=== PATIENT | female | born 1965 | race Caucasian/White ===

== ENCOUNTER → 2017-05-09 | Outpatient (REF) | payer OTHER ==
[~2017-05-09] MED LIST: MOTR200T44 PO; MULTCAP PO; VITA100066 PO
[2017-05-09 15:10] LABS: PERCENT SATURATION 39.6 % (13.2-37.4)
== END ==
LOC: M LAB REF 13:38
PROVIDERS: ATTEND Internal Medicine Medical Oncology
DX: D50.9 Iron deficiency anemia, unspecified (principal)

== ENCOUNTER → 2017-12-01 | Outpatient (REF) | payer OTHER ==
[2017-12-01 21:53] LABS: FERRITIN 46 NG/ML (8-252); IRON (FE) 136 UG/DL (50-170); PERCENT SATURATION 45.5 % (13.2-45.0); TOTAL IRON BINDING CAPACITY 299 UG/DL (250-450)
== END ==
LOC: M LAB REF 18:01
DX: D50.9 Iron deficiency anemia, unspecified (principal)

== ENCOUNTER → 2018-09-14 | Outpatient (CLI) | payer OTHER | LOC: M PAIN 10:15 | DX: M79.18 Myalgia, other site (principal); M54.5 Low back pain; G89.29 Other chronic pain; I20.9 Angina pectoris, unspecified; R56.9 Unspecified convulsions; F32.9 Major depressive disorder, single episode, unspecified; F43.10 Post-traumatic stress disorder, unspecified; Z79.84 Long term (current) use of oral hypoglycemic drugs; Z79.899 Other long term (current) drug therapy; Z87.820 Personal history of traumatic brain injury; Z98.84 Bariatric surgery status | CPT/HCPCS: G0463 ==

== ENCOUNTER → 2018-10-01 | Outpatient (CLI) | payer BC, OTHER ==
[~2018-10-01] MED LIST changes: +BUPIVACAINE HCL 0.25% 10 ML VIAL As Ordered; +BUPIVACAINE HCL 0.25% 30 ML VIAL As Ordered; -MOTR200T44 PO; -MULTCAP PO; +TRIAMCINOLONE ACETONIDE SUSP 40 MG/ML VIAL (J3301) As Ordered; -VITA100066 PO; +diazePAM 5 MG TAB As Ordered; +oxyCODONE 5MG TAB As Ordered
== END ==
LOC: M PAIN 08:30
DX: M79.18 Myalgia, other site (principal); M54.2 Cervicalgia; M54.5 Low back pain; R56.9 Unspecified convulsions; F32.9 Major depressive disorder, single episode, unspecified; F43.10 Post-traumatic stress disorder, unspecified; E66.01 Morbid (severe) obesity due to excess calories; Z68.35 Body mass index [BMI] 35.0-35.9, adult; Z87.820 Personal history of traumatic brain injury; Z98.84 Bariatric surgery status
CPT/HCPCS: J3301

== ENCOUNTER → 2018-12-21 | Outpatient (CLI) | payer OTHER ==
[~2018-12-21] MED LIST changes: +ARIP5TA PO; -BUPIVACAINE HCL 0.25% 10 ML VIAL As Ordered; -BUPIVACAINE HCL 0.25% 30 ML VIAL As Ordered; +BUPR1TAB53 PO; +CITA-230 PO; +DEXT10CA5 PO; +FERR325T3 PO; +FLUD0.1T PO; +HYDR-643 PO; +LEVO1CAP7 PO; +MAGN400C PO; +METF500T4 PO; +MOTR200T44 PO; +MULTCAP PO; +OMEP40CA2 PO; +PROP20TA72 PO; +QUET1TAB7 PO; +TIZA2TA PO; +TRAZ-160 PO; -TRIAMCINOLONE ACETONIDE SUSP 40 MG/ML VIAL (J3301) As Ordered; +VITA100066 PO; +VITA1CAP7 PO; +VITA500T3 PO; +ZONI100C2 PO; -diazePAM 5 MG TAB As Ordered; -oxyCODONE 5MG TAB As Ordered
--- NOTE | 2019-01-02 00:41 | ECWPNPC ---
PATIENT NAME: JAYCOB STOREY : 1965 GENDER: FEMALE VISIT DATE: 12/21/2018 DISCHARGE DATE: 12/21/18 1616 VISIT LOCKED DATE TIME: PHYSICIAN: ARLET ARMAS RESOURCE: ARLET ARMAS REASON FOR APPOINTMENT 1. SW PT, POST TPI HISTORY OF PRESENT ILLNESS HISTORY OF PRESENT ILLNESS: HERE FOR F/U OF CHRONIC NECK AND LOW BACK PAIN.HAD TPI NECK AND LOW BACK ON 10/11/18.REPORTING NO IMPROVEMENT AND SOME AGGREVATION IN PAIN AFTER PROCEDURE.CONTINUES TO HAVE INTERMITTENT NECK AND LOW BACK PAIN.PAIN IS AGGREVATED BY HOUSEWORK.PAIN IS RELIEVED WITH REST.PAIN IS WORSE ACROSS LOW BACK WITH RADIATION INTO LEFT HIP. PAIN THE PATIENT DESCRIBES THE PAIN... FALL RISK SCREENING: SCREENING :NO FALLS IN THE PAST YEAR CURRENT MEDICATIONS TAKING BUPROPION HCL ER (SR) 150 MG TABLET EXTENDED RELEASE 12 HOUR TAKE ONE TABLET BY MOUTH TWO TIMES A DAY ORAL TAKING [id number] 15-90.314 MG CAPSULE TAKE ONE CAPSULE BY MOUTH EVERY DAY ORAL TAKING AMPHETAMINE-DEXTROAMPHETAMINE 20 MG TABLET (SCHEDULE II DRUG) TAKE ONE TABLET BY MOUTH TWO TIMES A DAY MAXIMUM DAILY DOSE TWO TABLETS ORALLY BID TAKING MAGNESIUM OXIDE 400 (241.3 MG) MG TABLET TAKE ONE TABLET BY MOUTH DAILY ORAL TAKING ZONISAMIDE 100 MG CAPSULE TAKE ONE CAPSULE BY MOUTH TWICE A DAY ORAL TAKING CITALOPRAM HYDROBROMIDE 40 MG TABLET TAKE A 1 2 TABLET BY MOUTH ONCE DAILY ORAL TAKING PROPRANOLOL HCL 20 MG TABLET TAKE ONE TABLET BY MOUTH TWICE A DAY ORAL TAKING TIZANIDINE HCL 4 MG TABLET TAKE ONE TABLET BY MOUTH THREE TIMES A DAY ORAL TAKING TRAZODONE HCL 50 MG TABLET TAKE ONE TABLET BY MOUTH ONCE AT BEDTIME NEEDED ORAL TAKING ARIPIPRAZOLE 5 MG TABLET TAKE ONE TABLET BY MOUTH ONCE A DAY ORAL TAKING FLUDROCORTISONE ACETATE 0.1 MG TABLET TAKE ONE TABLET BY MOUTH DAILY ORAL TAKING MULTIVITAMINS OTC TABLET 1 TAB(S) ORALLY ONCE A DAY TAKING VITAMIN D 38428 U TABLET 1 TABLET ORALLY ONCE A DAY TAKING HYDROXYZINE HCL 25 MG TABLET TAKE ONE TABLET BY MOUTH EVERY 8 HOURS NEEDED ORAL , NOTES: NONE RECENTLY TAKING SUMATRIPTAN SUCCINATE 100 MG TABLET 1 TABLET NEEDED ORALLY NEEDED FOR HEADACHE, NOTES: NONE RECENTLY NOT-TAKING QUETIAPINE FUMARATE 25 MG TABLET TAKE ONE TABLET BY MOUTH ONCE AT BEDTIME ORAL NOT-TAKING METFORMIN HCL ER 500 MG TABLET EXTENDED RELEASE 24 HOUR TAKE ONE TABLET BY MOUTH TWO TIMES A DAY ORAL NOT-TAKING OMEPRAZOLE 40 MG CAPSULE DELAYED RELEASE TAKE ONE CAPSULE BY MOUTH EVERY DAY ORAL MEDICATION LIST REVIEWED AND RECONCILED WITH THE PATIENT PAST MEDICAL HISTORY SEIZURE DISORDER, RELATED TO OCP'S . HX MORBID OBESITY WITH HIGH BLOOD PRESSURE AND HIGH GLUCOSE LEVELS, WITH GASTRIC BYPASS MARCH 2010 IRON DEFICIENCY ANEMIA DEPRESSION, PTSD AND TBI SECONDARY TO HEAD INJURY - PSYCH TX TWICE PER MONTH ALLERGIES N.K.D.A. SURGICAL HISTORY C SECTION 1989 TUBAL LIGATION 1989 CHOLECYSTECTOMY 1991 GASTRIC BYPASS 03/2010 LEFT SHOULDER SURGERY 2015 & 2017 KNEE 2002 PARTIAL HYSTERECTOMY 2013 FAMILY HISTORY FATHER: 76 YRS, CA LUNG, TOBACCO USER, HX [place] MOTHER: 61 YRS, COPD, TOBACCO USER PATERNAL GRAND MOTHER: 46 YRS, BREAST CANCER PATERNAL UNCLE: 40'S YRS, 2 WITH COLON CANCER, 1 WITH LUNG CA 4 BROTHER(S) , 2 SISTER(S) . 2 SON(S) - HEALTHY. 2 SISTERS INFANTS - PNEUMONIA, SIDS. SOCIAL HISTORY GENERAL: TOBACCO USE ARE YOU A:NEVER SMOKER ALCOHOL SCREENING DID YOU HAVE A DRINK CONTAINING ALCOHOL IN THE PAST YEAR?NO POINTS0 INTERPRETATIONNEGATIVE RECREATIONAL DRUG USE DENIES. CAFFEINE CAFFEINE USE?YES HOW OFTEN AND HOW MUCH? 2 CUPS COFFEE PER DAY YAZDANISM [id number] ZOROASTRIAN NO TEMPLE BELIEFS THAT WOULD IMPACT HEALTH CARE. LEARNING BARRIERS / SPECIAL NEEDS BARRIERS TO LEARNING?NO VISION IMPAIRED?YES :CORRECTIVE LENSES LEARNING PREFERENCES?YES :HANDOUTS, OTHER (PLEASE COMMENT) WRITTEN LEARNING CAPABILITIES PRESENT?YES DOMESTIC VIOLENCE DENIES. OCCUPATION: [employer], [employer] AND [employer]. DIET: HEALTHY. SMALL PORTIONS. . EXERCISE: WALKS DAILY. OTHERS AT HOME: SPOUSE, ONE SON. PAIN CLINIC PFS, CLERGY, PUBLIC HEALTH REFERRALS PFS REFERRAL NEEDED?NO CLERGY REFERRAL NEEDED?NO PUBLIC HEALTH REFERRAL NEEDED?NO WAS THE PROVIDER NOTIFIED OF ANY PERTINENT INFO?NO HAS THE PATIENT BEEN EDUCATED REGARDING HIS/HER PLAN OF CARE?YES HAS THE PATIENT BEEN EDUCATED REGARDING PAIN, THE RISK FOR PAIN, THE IMPORTANCE OF EFFECTIVE PAIN MANAGEMENT, AND THE PAIN ASSESSMENT PROCESS?YES ADVANCE DIRECTIVE ADVANCE DIRECTIVE DISCUSSED WITH PATIENT:YES HAS INFO ON IT HOSPITALIZATION/MAJOR DIAGNOSTIC PROCEDURE NO HOSPITALIZATION HISTORY. REVIEW OF SYSTEMS REVIEWED BY: PROVIDER: ARLET CLINTON . CONSTITUTIONAL: ANY CHANGE IN YOUR MEDICAL CONDITION? NO . CHILLS NO . FEVER NO . INFECTION: DO YOU HAVE NEW INFECTIONS? NO . DO YOU HAVE HISTORY OF MRSA? NO . MUSCULOSKELETAL: ANY NEW PATTERNS OF PAIN OR NUMBNESS? NO . GASTROENTEROLOGY: ANY NEW CHANGE IN BOWEL CONTROL? NO . GENITOURINARY: ANY NEW CHANGE IN BLADDER CONTROL? NO . IS THERE A CHANCE YOU COULD BE ? NO . HEMATOLOGY/LYMPH: DO YOU TAKE ANY BLOOD THINNERS? (FOR EXAMPLE- COUMADIN, PLAVIX, AGGRENOX, PLATEL, PRADAXA, OR XARELTO) NO . WHEN WAS YOUR LAST DOSE? DATE: TIME: . NEUROLOGY: HAVE YOU FALLEN IN THE PAST 12 MONTHS? NO . ANY NEW EXTREMITY NUMBNESS OR WEAKNESS? NO . CARDIOLOGY: DO YOU HAVE A PACEMAKER OR DEFIBRILLATOR? NO . RESPIRATORY: HAVE YOU BEEN SICK IN THE PAST WEEK? NO . FEVER NO . FLU LIKE SYMPTOMS? NO . COUGH NO . INTEGUMENTARY: DO YOU HAVE ANY RASHES OR OPEN SORES? NO . ALLERGIC/IMMUNO: ARE YOU ALLERGIC TO IV DYE? NO . ANY NEW ALLERGIES? NO . PSYCHIATRIC: DO YOU HAVE THOUGHTS OF HURTING YOURSELF OR SOMEONE ELSE? NO . ARE YOU ABUSED, NEGLECTED, OR IN AN UNSAFE ENVIRONMENT? NO . ENDOCRINOLOGY: ARE YOU DIABETIC? NO . OTHER: DO YOU NEED ANY PRESCRIPTIONS? NO . IF YES, PLEASE LIST: ____ . ANY NEW PROBLEMS WITH YOUR MEDICATIONS? NO . WHEN DID YOU LAST EAT? ____ . WHEN DID YOU LAST DRINK? ____ . WHAT DID YOU LAST DRINK? ____ . NAME OF PERSON DRIVING YOU HOME? ____ . DO YOU HAVE ANY OTHER QUESTIONS OR CONCERNS NO . VITAL SIGNS WT 216.8 LBS, HT 64 IN, BMI 37.21 INDEX, BP 130/72 MM HG, HR 78 /MIN, RR 16 /MIN, TEMP 97.8 F, OXYGEN SAT % 98%, NA INITIALS SC 14:58. EXAMINATION GENERAL EXAMINATION: GENERAL APPEARANCE:ALERT,NO DISTRESS . PSYCHAFFECT NORMAL . LUNGS:LUNG SOUNDS ARE CLEAR . HEART:HEART RATE REGULAR . MUSCULOSKELETAL:MST 5/5 BILAT. LOWER EXTREMITIES . LUMBAR SACRAL SPINE TENDERNESS LEFT SIJ . DIAGNOSTIC TESTS REVIEWEDCT L/S [id number] . ASSESSMENTS SACROILIITIS - M46.1 (PRIMARY) TREATMENT SACROILIITIS NOTES: LEFT SIJ. PROCEDURE CODES FA211 ESTABILISHED PATIENT [facility] CHARGE DISPOSITION & COMMUNICATION FOLLOW UP POST (REASON: LEFT SIJ) ELECTRONICALLY SIGNED BY OZ ORO ON 01/01/2019 AT 03:55 PM EST DISCLAIMER : THIS IS A VISIT SUMMARY EXTRACTED FROM THE [employer] CHART. IT IS NOT A COPY OF THE [employer] PROGRESS NOTE. AINSLEY
== END ==
LOC: M PAIN 14:45
PROVIDERS: ATTEND Nurse Practitioner Family
DX: M46.1 Sacroiliitis, not elsewhere classified (principal); G89.29 Other chronic pain; R56.9 Unspecified convulsions; F32.9 Major depressive disorder, single episode, unspecified; F43.10 Post-traumatic stress disorder, unspecified; E66.9 Obesity, unspecified; Z68.37 Body mass index [BMI] 37.0-37.9, adult; Z79.899 Other long term (current) drug therapy; Z98.84 Bariatric surgery status; Z87.820 Personal history of traumatic brain injury

== ENCOUNTER → 2018-12-30 | Outpatient (CLI) | payer BC, OTHER ==
[~2018-12-30] MED LIST changes: +BUPIVACAINE HCL 0.25% 30 ML VIAL As Ordered ONE; +ISOVUE-M 300 61% 15ML VIAL (Q9967) As Ordered ONE; +LIDOCAINE 1% SDV INJ 30 ML VIAL As Ordered ONE; +TRIAMCINOLONE ACETONIDE SUSP 40 MG/ML VIAL (J3301) As Ordered ONE; +diazePAM 5 MG TAB As Ordered ONE; +oxyCODONE 5MG TAB As Ordered ONE
--- NOTE | 2018-12-30 15:32 | REP ---
Left SI joint: Two views. History: Left SI joint injection for pain. 10 seconds of fluoroscopy time is reported. Findings: A sequence of two last image hold fluoroscopically obtained spot radiographs of the left SI joint document needle position and contrast injection associated with SI joint injection procedure. Electronically Signed by Sal Plunkett MD 12/30/2018 07:19 P
--- NOTE | 2019-01-09 23:28 | ECWPNPC ---
PATIENT NAME: JAYCOB STOREY : 1965 GENDER: FEMALE VISIT DATE: 12/30/2018 DISCHARGE DATE: 12/30/18 1322 VISIT LOCKED DATE TIME: PHYSICIAN: OLIVE CORNELL MD RESOURCE: OLIVE CORNELL MD REASON FOR APPOINTMENT 1. LEFT SIJ HISTORY OF PRESENT ILLNESS HISTORY OF PRESENT ILLNESS: PAIN THE PATIENT DESCRIBES THE PAIN... FALL RISK SCREENING: SCREENING :NO FALLS IN THE PAST YEAR CURRENT MEDICATIONS TAKING BUPROPION HCL ER (SR) 150 MG TABLET EXTENDED RELEASE 12 HOUR TAKE ONE TABLET BY MOUTH TWO TIMES A DAY ORAL , NOTES: 0700 TAKING [id number] 15-90.314 MG CAPSULE TAKE ONE CAPSULE BY MOUTH EVERY DAY ORAL , NOTES: 07 TAKING AMPHETAMINE-DEXTROAMPHETAMINE 20 MG TABLET (SCHEDULE II DRUG) TAKE ONE TABLET BY MOUTH TWO TIMES A DAY MAXIMUM DAILY DOSE TWO TABLETS ORALLY BID, NOTES: 07 TAKING MAGNESIUM OXIDE 400 (241.3 MG) MG TABLET TAKE ONE TABLET BY MOUTH DAILY ORAL , NOTES: 12/29/182199 TAKING ZONISAMIDE 100 MG CAPSULE TAKE ONE CAPSULE BY MOUTH TWICE A DAY ORAL , NOTES: 07 TAKING CITALOPRAM HYDROBROMIDE 40 MG TABLET TAKE A 1 2 TABLET BY MOUTH ONCE DAILY ORAL , NOTES: 07 TAKING PROPRANOLOL HCL 20 MG TABLET TAKE ONE TABLET BY MOUTH TWICE A DAY ORAL , NOTES: 12/29/182199 TAKING TIZANIDINE HCL 4 MG TABLET TAKE ONE TABLET BY MOUTH THREE TIMES A DAY ORAL , NOTES: 12/29/182199 TAKING TRAZODONE HCL 50 MG TABLET TAKE ONE TABLET BY MOUTH ONCE AT BEDTIME NEEDED ORAL , NOTES: 12/29/182199 TAKING ARIPIPRAZOLE 5 MG TABLET TAKE ONE TABLET BY MOUTH ONCE A DAY ORAL , NOTES: 07 TAKING FLUDROCORTISONE ACETATE 0.1 MG TABLET TAKE ONE TABLET BY MOUTH DAILY ORAL , NOTES: 0700 TAKING MULTIVITAMINS OTC TABLET 1 TAB(S) ORALLY ONCE A DAY, NOTES: 0700 TAKING VITAMIN D 99239 U TABLET 1 TABLET ORALLY ONCE A DAY, NOTES: 07 TAKING HYDROXYZINE HCL 25 MG TABLET TAKE ONE TABLET BY MOUTH EVERY 8 HOURS NEEDED ORAL , NOTES: NONE RECENTLY TAKING SUMATRIPTAN SUCCINATE 100 MG TABLET 1 TABLET NEEDED ORALLY NEEDED FOR HEADACHE, NOTES: NONE RECENTLY NOT-TAKING QUETIAPINE FUMARATE 25 MG TABLET TAKE ONE TABLET BY MOUTH ONCE AT BEDTIME ORAL NOT-TAKING METFORMIN HCL ER 500 MG TABLET EXTENDED RELEASE 24 HOUR TAKE ONE TABLET BY MOUTH TWO TIMES A DAY ORAL NOT-TAKING OMEPRAZOLE 40 MG CAPSULE DELAYED RELEASE TAKE ONE CAPSULE BY MOUTH EVERY DAY ORAL MEDICATION LIST REVIEWED AND RECONCILED WITH THE PATIENT PAST MEDICAL HISTORY SEIZURE DISORDER, RELATED TO OCP'S . HX MORBID OBESITY WITH HIGH BLOOD PRESSURE AND HIGH GLUCOSE LEVELS, WITH GASTRIC BYPASS MARCH 2010 IRON DEFICIENCY ANEMIA DEPRESSION, PTSD AND TBI SECONDARY TO HEAD INJURY - PSYCH TX TWICE PER MONTH ALLERGIES N.K.D.A. SURGICAL HISTORY C SECTION 1989 TUBAL LIGATION 1989 CHOLECYSTECTOMY 1991 GASTRIC BYPASS 03/2010 LEFT SHOULDER SURGERY 2015 & 2017 KNEE 2002 PARTIAL HYSTERECTOMY 2013 FAMILY HISTORY FATHER: 76 YRS, CA LUNG, TOBACCO USER, HX [place] MOTHER: 61 YRS, COPD, TOBACCO USER PATERNAL GRAND MOTHER: 46 YRS, BREAST CANCER PATERNAL UNCLE: 40'S YRS, 2 WITH COLON CANCER, 1 WITH LUNG CA 4 BROTHER(S) , 2 SISTER(S) . 2 SON(S) - HEALTHY. 2 SISTERS INFANTS - PNEUMONIA, SIDS. SOCIAL HISTORY GENERAL: TOBACCO USE ARE YOU A:NEVER SMOKER ALCOHOL SCREENING DID YOU HAVE A DRINK CONTAINING ALCOHOL IN THE PAST YEAR?NO POINTS0 INTERPRETATIONNEGATIVE RECREATIONAL DRUG USE DENIES. CAFFEINE CAFFEINE USE?YES HOW OFTEN AND HOW MUCH? 2 CUPS COFFEE PER DAY SPIRITISM [id number] ORTHODOX NO MORMON BELIEFS THAT WOULD IMPACT HEALTH CARE. LANGUAGE LANGUAGES SPOKEN:VINCENTIAN LEARNING BARRIERS / SPECIAL NEEDS BARRIERS TO LEARNING?NO VISION IMPAIRED?YES :CORRECTIVE LENSES LEARNING PREFERENCES?YES :HANDOUTS, OTHER (PLEASE COMMENT) WRITTEN LEARNING CAPABILITIES PRESENT?YES DOMESTIC VIOLENCE DENIES. OCCUPATION: [employer] AND [employer]. DIET: HEALTHY. SMALL PORTIONS. . EXERCISE: WALKS DAILY. OTHERS AT HOME: SPOUSE, ONE SON. PAIN CLINIC PFS, CLERGY, PUBLIC HEALTH REFERRALS PFS REFERRAL NEEDED?NO CLERGY REFERRAL NEEDED?NO PUBLIC HEALTH REFERRAL NEEDED?NO WAS THE PROVIDER NOTIFIED OF ANY PERTINENT INFO?NO HAS THE PATIENT BEEN EDUCATED REGARDING HIS/HER PLAN OF CARE?YES HAS THE PATIENT BEEN EDUCATED REGARDING PAIN, THE RISK FOR PAIN, THE IMPORTANCE OF EFFECTIVE PAIN MANAGEMENT, AND THE PAIN ASSESSMENT PROCESS?YES ADVANCE DIRECTIVE ADVANCE DIRECTIVE DISCUSSED WITH PATIENT:YES DECLINES HCP INFORMATION AND ASSISTANCE IN FILLING OUT. REVIEWED WITH PATIENT 12/30/18 1148 JS. HOSPITALIZATION/MAJOR DIAGNOSTIC PROCEDURE SURGERY RELATED REVIEW OF SYSTEMS REVIEWED BY: PROVIDER: . CONSTITUTIONAL: ANY CHANGE IN YOUR MEDICAL CONDITION? NO . CHILLS NO . FEVER NO . INFECTION: DO YOU HAVE NEW INFECTIONS? NO . DO YOU HAVE HISTORY OF MRSA? NO . MUSCULOSKELETAL: ANY NEW PATTERNS OF PAIN OR NUMBNESS? NO . GASTROENTEROLOGY: ANY NEW CHANGE IN BOWEL CONTROL? NO . GENITOURINARY: ANY NEW CHANGE IN BLADDER CONTROL? NO . IS THERE A CHANCE YOU COULD BE ? NO . HEMATOLOGY/LYMPH: DO YOU TAKE ANY BLOOD THINNERS? (FOR EXAMPLE- COUMADIN, PLAVIX, AGGRENOX, PLATEL, PRADAXA, OR XARELTO) NO . WHEN WAS YOUR LAST DOSE? DATE: TIME: . NEUROLOGY: HAVE YOU FALLEN IN THE PAST 12 MONTHS? YES, DISCUSSED AT PREVIOUS VISIT . ANY NEW EXTREMITY NUMBNESS OR WEAKNESS? NO . CARDIOLOGY: DO YOU HAVE A PACEMAKER OR DEFIBRILLATOR? NO . RESPIRATORY: HAVE YOU BEEN SICK IN THE PAST WEEK? NO . FEVER NO . FLU LIKE SYMPTOMS? NO . COUGH NO . INTEGUMENTARY: DO YOU HAVE ANY RASHES OR OPEN SORES? NO . ALLERGIC/IMMUNO: ARE YOU ALLERGIC TO IV DYE? NO . ANY NEW ALLERGIES? NO . PSYCHIATRIC: DO YOU HAVE THOUGHTS OF HURTING YOURSELF OR SOMEONE ELSE? NO . ARE YOU ABUSED, NEGLECTED, OR IN AN UNSAFE ENVIRONMENT? NO . ENDOCRINOLOGY: ARE YOU DIABETIC? NO . OTHER: DO YOU NEED ANY PRESCRIPTIONS? NO . IF YES, PLEASE LIST: ____ . ANY NEW PROBLEMS WITH YOUR MEDICATIONS? NO . WHEN DID YOU LAST EAT? ____12/29/18 2030 . WHEN DID YOU LAST DRINK? ____12/30/18 0830 . WHAT DID YOU LAST DRINK? ____GINGERALE . NAME OF PERSON DRIVING YOU HOME? ____DAT MAR . DO YOU HAVE ANY OTHER QUESTIONS OR CONCERNS NO . VITAL SIGNS WT 214.6 LBS, HT 64 IN, BMI 36.83 INDEX, BP 120/71 MM HG, HR 67 /MIN, RR 16 /MIN, TEMP 98.1 F, OXYGEN SAT % 97%, SAFE IN ENV? (Y/N) YES, NA INITIALS AW 1126, REVIEWED BY: JEF. ASSESSMENTS SACROILIITIS, NOT ELSEWHERE CLASSIFIED - M46.1 (PRIMARY) PROCEDURES PN SI PRE PROCEDURE DIAGNOSIS SACROILIITIS, SACROILIAC JOINT DYSFUNCTION POST PROCEDURE DIAGNOSIS SACROILIITIS, SACROILIAC JOINT DYSFUNCTION PROCEDURE LEFT SACROILIAC JOINT BLOCK SURGEON DR. OLIVE CORNELL SENIOR ADMINISTRATOR SUPPORT NONE ANESTHESIA LOCAL PRE PROCEDURE NOTE PATIENT WITH HISTORY OF CHRONIC LOW BACK PAIN. I EVALUATED THE PATIENT AND REVIEWED THE CHART. I WENT OVER THE RISKS, ALTERNATIVES, AND BENEFITS ASSOCIATED WITH THIS PROCEDURE. THE PATIENT WOULD LIKE TO PROCEED AND GAVE CONSENT TO PERFORM THE PROCEDURE. THE PATIENT DENIES UNEXPLAINABLE WEIGHT LOSS, FEVER, CHILLS, OR NEW CHANGES IN URINARY OR BOWEL CONTROL DESCRIPTION OF PROCEDURE THE PATIENT WAS BROUGHT TO THE PROCEDURE ROOM AND PLACED IN THE PRONE POSITION. THE LUMBOSACRAL AREA WAS CLEANED WITH CHLORAPREP SOLUTION AND DRAPED ASEPTICALLY. THE PROCEDURE WAS DONE UNDER STERILE CONDITIONS. I CHECKED LATERALITY AND THE LEVEL WHERE THE PROCEDURE WAS GOING TO BE PERFORMED WITH THE PATIENT AND THE SUPPORTING STAFF AT THE MOMENT OF THE TIME OUT IN THE PROCEDURE ROOM. UNDER FLUOROSCOPIC GUIDANCE, TARGET POINT WAS SELECTED AT THE LOWER BORDER OF THE LEFT SACROILIAC JOINT. TARGET POINT WAS SELECTED AFTER MEDIAL ROTATION AND TILT OF THE MAGNIFIER OF THE C-ARM. LIDOCAINE WAS USED TO NUMB THE SKIN AND SUBCUTANEOUS TISSUE BELOW IT. A SPINAL NEEDLE, 22-GAUGE, WAS ADVANCED UNDER FLUOROSCOPIC GUIDANCE AND FOLLOWING PATIENT FEEDBACK UNTIL THE TARGET AREA WAS TOUCHED. THE POSITION OF THE NEEDLE WAS VERIFIED WITH AP AND LATERAL VIEWS. AFTER PROPER POSITION OF THE NEEDLE WAS ACHIEVED, ISOVUE M DYE 30%, 0.25 ML, WAS INJECTED SHOWING SPREAD OF THE DYE. THEN, A SOLUTION OF 20 MG OF KENALOG WAS INJECTED IN LEFT JOINT WITH 3 ML OF BUPIVACAINE 0.125%. THERE WAS NO EVIDENCE OF BLOOD, PARESTHESIA OR CEREBROSPINAL FLUID DURING THE PROCEDURE. THE PATIENT WAS SENT TO THE RECOVERY ROOM. THE PATIENT WAS MOVING THE EXTREMITIES AND DOING WELL. THERE WAS NO COMPLICATION DURING THE PROCEDURE. FLUOROSCOPY TIME WAS 10 SECONDS POST PROCEDURE NOTE THE PATIENT WILL BE SEEN IN A FOLLOW UP IN THE NEXT FEW WEEKS. INSTRUCTIONS WERE GIVEN, QUESTIONS WERE ANSWERED, AND THE PATIENT EXPRESSED UNDERSTANDING AND AGREED WITH THE PLAN. I, ROSEY MAHMOOD, DOCUMENTED THE ABOVE INFORMATION ACTING A SCRIBE FOR DR. CORNELL. I HAVE REVIEWED THE ABOVE DOCUMENT, WRITTEN BY ROSEY GASPAR AND I VERIFY THAT IT IS ACCURATE. DIAGNOSTIC IMAGING [facility] FLUORO GUIDANCE (PAIN)[id number] PROCEDURE CODES 6045F RADXPS IN END [id number] PXD 10480 INJECT SACROILIAC JOINT, MODIFIERS: LT DISPOSITION & COMMUNICATION FOLLOW UP 3 WEEKS ELECTRONICALLY SIGNED BY OLIVE CORNELL MD, MD ON 01/09/2019 AT 06:53 PM EST DISCLAIMER : THIS IS A VISIT SUMMARY EXTRACTED FROM THE [employer] CHART. IT IS NOT A COPY OF THE [employer] PROGRESS NOTE. AINSLEY
== END ==
LOC: M PAIN 11:30
PROVIDERS: ATTEND Anesthesiology
DX: M46.1 Sacroiliitis, not elsewhere classified (principal); D50.9 Iron deficiency anemia, unspecified; F32.9 Major depressive disorder, single episode, unspecified; Z98.84 Bariatric surgery status; F43.10 Post-traumatic stress disorder, unspecified; Z87.820 Personal history of traumatic brain injury; Z79.899 Other long term (current) drug therapy
CPT/HCPCS: G0260; J3301; Q9967

== ENCOUNTER → 2019-01-15 | Outpatient (CLI) | payer BC, OTHER ==
[~2019-01-15] MED LIST changes: -BUPIVACAINE HCL 0.25% 30 ML VIAL As Ordered ONE; -ISOVUE-M 300 61% 15ML VIAL (Q9967) As Ordered ONE; -LIDOCAINE 1% SDV INJ 30 ML VIAL As Ordered ONE; +PROB250C PO; -TRIAMCINOLONE ACETONIDE SUSP 40 MG/ML VIAL (J3301) As Ordered ONE; -diazePAM 5 MG TAB As Ordered ONE; -oxyCODONE 5MG TAB As Ordered ONE
--- NOTE | 2019-01-30 02:07 | ECWPNPC ---
PATIENT NAME: JAYCOB STOREY : 1965 GENDER: FEMALE VISIT DATE: 01/15/2019 DISCHARGE DATE: 01/15/19 1437 VISIT LOCKED DATE TIME: PHYSICIAN: ARLET ARMAS RESOURCE: ARLET ARMAS REASON FOR APPOINTMENT 1. POST PROCEDURE HISTORY OF PRESENT ILLNESS HISTORY OF PRESENT ILLNESS: HERE FOR POST PROCEDURE F/U.HAD LEFT SIJ ON 12/30/18.REPORTING INITIALLY NO IMPROVEMENT IN PAIN BUT AFTER QUESTIONING SHE ADMITS THAT EPISODIC SEVERE PAIN IS NOT INTENSE.CONTINUES WITH LEFT MID TO LOW BACK PAIN WITH RADIATION INTO LEFT HIP.RATING PAIN VAS 4/10. PAIN THE PATIENT DESCRIBES THE PAIN... FALL RISK SCREENING: SCREENING : NO FALLS IN THE PAST YEAR. CURRENT MEDICATIONS TAKING BUPROPION HCL ER (SR) 150 MG TABLET EXTENDED RELEASE 12 HOUR TAKE ONE TABLET BY MOUTH TWO TIMES A DAY ORAL , NOTES: 0700 TAKING AMPHETAMINE-DEXTROAMPHETAMINE 20 MG TABLET (SCHEDULE II DRUG) TAKE ONE TABLET BY MOUTH TWO TIMES A DAY MAXIMUM DAILY DOSE TWO TABLETS ORALLY BID TAKING MAGNESIUM OXIDE 400 (241.3 MG) MG TABLET TAKE ONE TABLET BY MOUTH DAILY ORAL TAKING ZONISAMIDE 100 MG CAPSULE TAKE ONE CAPSULE BY MOUTH TWICE A DAY ORAL TAKING CITALOPRAM HYDROBROMIDE 40 MG TABLET 0.5 TABLET ORAL ONCE A DAY TAKING PROPRANOLOL HCL 60 MG CAPSULE EXTENDED RELEASE TAKE ONE TABLET BY MOUTH TWICE A DAY ORALLY ONCE A DAY TAKING TIZANIDINE HCL 4 MG TABLET TAKE ONE TABLET BY MOUTH THREE TIMES A DAY ORAL TAKING TRAZODONE HCL 100 MG TABLET TAKE ONE TABLET BY MOUTH ONCE AT BEDTIME NEEDED ORALLY EVERY BEDTIME TAKING ARIPIPRAZOLE 5 MG TABLET TAKE ONE TABLET BY MOUTH ONCE A DAY ORAL TAKING FLUDROCORTISONE ACETATE 0.1 MG TABLET TAKE ONE TABLET BY MOUTH DAILY ORAL TAKING MULTIVITAMINS OTC TABLET 1 TAB(S) ORALLY ONCE A DAY TAKING HYDROXYZINE HCL 25 MG TABLET TAKE ONE TABLET BY MOUTH EVERY 8 HOURS NEEDED ORAL TAKING SUMATRIPTAN SUCCINATE 100 MG TABLET 1 TABLET NEEDED ORALLY NEEDED FOR HEADACHE TAKING VITAMIN D-3 5000 UNIT TABLET 1 TABLET ORALLY ONCE A DAY NOT-TAKING [id number] 15-90.314 MG CAPSULE TAKE ONE CAPSULE BY MOUTH EVERY DAY ORAL , NOTES: 0700 NOT-TAKING VITAMIN D 57674 U TABLET 1 TABLET ORALLY ONCE A DAY NOT-TAKING QUETIAPINE FUMARATE 25 MG TABLET TAKE ONE TABLET BY MOUTH ONCE AT BEDTIME ORAL NOT-TAKING METFORMIN HCL ER 500 MG TABLET EXTENDED RELEASE 24 HOUR TAKE ONE TABLET BY MOUTH TWO TIMES A DAY ORAL NOT-TAKING OMEPRAZOLE 40 MG CAPSULE DELAYED RELEASE TAKE ONE CAPSULE BY MOUTH EVERY DAY ORAL MEDICATION LIST REVIEWED AND RECONCILED WITH THE PATIENT PAST MEDICAL HISTORY SEIZURE DISORDER, RELATED TO OCP'S . HX MORBID OBESITY WITH HIGH BLOOD PRESSURE AND HIGH GLUCOSE LEVELS, WITH GASTRIC BYPASS MARCH 2010 IRON DEFICIENCY ANEMIA DEPRESSION, PTSD AND TBI SECONDARY TO HEAD INJURY - PSYCH TX TWICE PER MONTH PALPITATIONS ALLERGIES N.K.D.A. SURGICAL HISTORY C SECTION 1989 TUBAL LIGATION 1989 CHOLECYSTECTOMY 1991 GASTRIC BYPASS 03/2010 LEFT SHOULDER SURGERY 2015 & 2018 RIGHT KNEE 2002 PARTIAL HYSTERECTOMY 2013 FAMILY HISTORY FATHER: 76 YRS, CA LUNG, TOBACCO USER, HX [place] MOTHER: 61 YRS, COPD, TOBACCO USER PATERNAL GRAND MOTHER: 46 YRS, BREAST CANCER PATERNAL UNCLE: 40'S YRS, 2 WITH COLON CANCER, 1 WITH LUNG CA 4 BROTHER(S) , 2 SISTER(S) . 2 SON(S) - HEALTHY. 2 SISTERS INFANTS - PNEUMONIA, SIDS. SOCIAL HISTORY GENERAL: TOBACCO USE ARE YOU A:NEVER SMOKER ALCOHOL SCREENING DID YOU HAVE A DRINK CONTAINING ALCOHOL IN THE PAST YEAR?NO POINTS0 INTERPRETATIONNEGATIVE RECREATIONAL DRUG USE DENIES. CAFFEINE CAFFEINE USE?YES HOW OFTEN AND HOW MUCH? 1/2 TO 2 CUPS COFFEE PER DAY SHINTO [id number] [employer]AN NO BAPTIST BELIEFS THAT WOULD IMPACT HEALTH CARE. LANGUAGE LANGUAGES SPOKEN:LAO LEARNING BARRIERS / SPECIAL NEEDS BARRIERS TO LEARNING?NO VISION IMPAIRED?YES :CORRECTIVE LENSES LEARNING PREFERENCES?YES :HANDOUTS, OTHER (PLEASE COMMENT) WRITTEN LEARNING CAPABILITIES PRESENT?YES DOMESTIC VIOLENCE DENIES. OCCUPATION: DISABLED FROM [employer] AND [employer]. DIET: HEALTHY. SMALL PORTIONS. . EXERCISE: WALKS DAILY. OTHERS AT HOME: SPOUSE. PAIN CLINIC PFS, CLERGY, PUBLIC HEALTH REFERRALS PFS REFERRAL NEEDED?NO CLERGY REFERRAL NEEDED?NO PUBLIC HEALTH REFERRAL NEEDED?NO WAS THE PROVIDER NOTIFIED OF ANY PERTINENT INFO?NO HAS THE PATIENT BEEN EDUCATED REGARDING HIS/HER PLAN OF CARE?YES HAS THE PATIENT BEEN EDUCATED REGARDING PAIN, THE RISK FOR PAIN, THE IMPORTANCE OF EFFECTIVE PAIN MANAGEMENT, AND THE PAIN ASSESSMENT PROCESS?YES ADVANCE DIRECTIVE ADVANCE DIRECTIVE DISCUSSED WITH PATIENT:YES DECLINES HCP INFORMATION AND ASSISTANCE IN FILLING OUT. REVIEWED WITH PATIENT 12/30/18 1148 JS. HOSPITALIZATION/MAJOR DIAGNOSTIC PROCEDURE SURGERY RELATED REVIEW OF SYSTEMS REVIEWED BY: PROVIDER: ARLET CLINTON . CONSTITUTIONAL: ANY CHANGE IN YOUR MEDICAL CONDITION? NO . CHILLS NO . FEVER NO . INFECTION: DO YOU HAVE NEW INFECTIONS? NO . DO YOU HAVE HISTORY OF MRSA? NO . MUSCULOSKELETAL: ANY NEW PATTERNS OF PAIN OR NUMBNESS? NO . GASTROENTEROLOGY: ANY NEW CHANGE IN BOWEL CONTROL? NO . GENITOURINARY: ANY NEW CHANGE IN BLADDER CONTROL? NO . IS THERE A CHANCE YOU COULD BE ? NO . HEMATOLOGY/LYMPH: DO YOU TAKE ANY BLOOD THINNERS? (FOR EXAMPLE- COUMADIN, PLAVIX, AGGRENOX, PLATEL, PRADAXA, OR XARELTO) NO . WHEN WAS YOUR LAST DOSE? DATE: TIME: . NEUROLOGY: HAVE YOU FALLEN IN THE PAST 12 MONTHS? YES . ANY NEW EXTREMITY NUMBNESS OR WEAKNESS? NO . CARDIOLOGY: DO YOU HAVE A PACEMAKER OR DEFIBRILLATOR? NO . RESPIRATORY: HAVE YOU BEEN SICK IN THE PAST WEEK? NO . FEVER NO . FLU LIKE SYMPTOMS? NO . COUGH NO . INTEGUMENTARY: DO YOU HAVE ANY RASHES OR OPEN SORES? NO . ALLERGIC/IMMUNO: ARE YOU ALLERGIC TO IV DYE? NO . ANY NEW ALLERGIES? NO . PSYCHIATRIC: DO YOU HAVE THOUGHTS OF HURTING YOURSELF OR SOMEONE ELSE? NO . ARE YOU ABUSED, NEGLECTED, OR IN AN UNSAFE ENVIRONMENT? NO . ENDOCRINOLOGY: ARE YOU DIABETIC? NO . OTHER: DO YOU NEED ANY PRESCRIPTIONS? NO . IF YES, PLEASE LIST: ____ . ANY NEW PROBLEMS WITH YOUR MEDICATIONS? NO . WHEN DID YOU LAST EAT? ____ . WHEN DID YOU LAST DRINK? ____ . WHAT DID YOU LAST DRINK? ____ . NAME OF PERSON DRIVING YOU HOME? ____ . DO YOU HAVE ANY OTHER QUESTIONS OR CONCERNS NO . VITAL SIGNS WT 214.6 LBS, HT 64 IN, BMI 36.83 INDEX, BP 129/83 MM HG, HR 83 /MIN, RR 16 /MIN, TEMP 97.4 F, OXYGEN SAT % 96%, NA INITIALS SC 13:19, REVIEWED BY: LS. EXAMINATION GENERAL EXAMINATION: GENERAL APPEARANCE:AWAKE,ALERT ,PLEAASANT . PSYCHAFFECT NORMAL . LUNGS:LUNG CHONG ARE CLEAR TO AUSCULTATION BILATERALLY. GOOD MOVEMENT OF AIR . HEART:S1, S2 IN A REGULAR RATE AND RHYTHM. NO SIGNIFICANT MURMURS, RUBS OR GALLOPS NOTED . LUMBAR SACRAL SPINEPALPATION:TENDER OVER LEFT L4/5-L5/S1 LUMBAR FACETS WITH FACET LOADING. AGGREVATION OF PAIN NOTED OVER LEFT L4/5-L5/S1 W EXTENSION OF SPINE.. ASSESSMENTS LUMBOSACRAL SPONDYLOSIS WITHOUT MYELOPATHY - M47.817 (PRIMARY) TREATMENT LUMBOSACRAL SPONDYLOSIS WITHOUT MYELOPATHY NOTES: LEFT L4/5-L5/S1 DIAGNOSTIC BLOCK. PROCEDURE CODES FA211 ESTABILISHED PATIENT [facility] CHARGE DISPOSITION & COMMUNICATION FOLLOW UP POST (REASON: LEFT L4/5-L5/S1 DIAGNOSTIC BLOCK) ELECTRONICALLY SIGNED BY OZ ORO ON 01/29/2019 AT 01:29 PM EST DISCLAIMER : THIS IS A VISIT SUMMARY EXTRACTED FROM THE [employer] CHART. IT IS NOT A COPY OF THE [employer] PROGRESS NOTE. [place]
== END ==
LOC: M PAIN 13:30
PROVIDERS: ATTEND Nurse Practitioner Family
DX: M47.817 Spondylosis without myelopathy or radiculopathy, lumbosacral region (principal); R56.9 Unspecified convulsions; I10 Essential (primary) hypertension; F32.9 Major depressive disorder, single episode, unspecified; F43.10 Post-traumatic stress disorder, unspecified; Z79.899 Other long term (current) drug therapy; Z87.820 Personal history of traumatic brain injury; Z98.84 Bariatric surgery status

== ENCOUNTER → 2019-02-05 | Outpatient (CLI) | payer BC, OTHER, MEDICARE ==
--- NOTE | 2019-02-05 12:47 | REPMRS ---
Patient History The patient states she has not had a clinical breast exam in over a year. Family history of breast cancer at age 40 in paternal grandmother, lung cancer at age 60 in father, colorectal cancer in paternal uncle, colorectal cancer in paternal uncle, colorectal cancer in paternal uncle. Kimmy priors in synapse Digital Mammo Screening Bilat: February 05, 2019 - Exam #: [id number] Bilateral CC and MLO view(s) were taken. Technologist: Sahara Pozo, Technologist FINDINGS: There are scattered fibroglandular densities. There has been no change in the appearance of the mammogram from the prior studies. There is a mild amount of residual fibroglandular tissue which is fairly symmetric. There is no interval development of dominant mass, architectural distortion, or clustered microcalcification suggestive of malignancy. Scattered lymph nodes are seen in the axillae. There is a benign appearing intramammary node in the upper outer quadrant of the left breast. 3-D tomosynthesis shows no additional findings. No significant changes when compared with prior studies. Assessment: BI-RADS/ACR category 2 mammogram. Benign Findings. Recommendation Routine screening mammogram in 1 year (for women over age 40). This mammogram was interpreted with the aid of an FDA-approved computer-aided dectection system. A. Negative x-ray reports should not delay biopsy if a dominant or clinically suspicious mass is present. B. Four to eight percent of cancers are not identified by mammography. C. Adenosis and dense breast may obscure an underlying neoplasm. Electronically Signed By: Valentín Chen MD 02/05/19 1652
== END ==
LOC: M RAD 08:38
PROVIDERS: ATTEND Internal Medicine Hematology & Oncology
DX: Z12.31 Encounter for screening mammogram for malignant neoplasm of breast (principal); Z80.3 Family history of malignant neoplasm of breast; Z80.0 Family history of malignant neoplasm of digestive organs; Z80.1 Family history of malignant neoplasm of trachea, bronchus and lung

== ENCOUNTER → 2019-02-10 | Outpatient (CLI) | payer BC, OTHER ==
--- NOTE | 2019-02-11 07:05 | REP ---
Clinical: Elevated liver function tests. Technique: Real time conway scale ultrasound examination using curved array transducer. Findings: Liver is coarsened in echotexture suggesting hepatocellular disease without focal hepatic lesion identified. Pancreas is incompletely evaluated due to interposed bowel gas but visualized portions appear normal. The patient is noted to be status post cholecystectomy. No biliary ductal dilatation is appreciated and the common bile duct measures 4.8 mm diameter. The right kidney is normal in reniform shape without hydronephrosis and measures 11.4 x 5.0 x 4.5 cm. No ascites. Impression: Hepatocellular disease without obvious focal hepatic lesion identified. Electronically Signed by Christian Stearns MD 02/11/2019 06:56 A
== END ==
LOC: M RAD 06:53
PROVIDERS: ATTEND Internal Medicine Hematology & Oncology
DX: R94.5 Abnormal results of liver function studies (principal); K76.89 Other specified diseases of liver

== ENCOUNTER → 2019-03-08 | Outpatient (CLI) | payer BC, OTHER ==
[~2019-03-08] MED LIST changes: +AMOX500C PO; +ARIP1TAB6 PO; -ARIP5TA PO; -CITA-230 PO; +CITA20TA7 PO; +D-3-50003 PO; -VITA1CAP7 PO; +diazePAM 5 MG TAB As Ordered ONE; +oxyCODONE 5MG TAB As Ordered ONE
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
== END ==
LOC: M PAIN 10:15
PROVIDERS: ATTEND Nurse Practitioner Family
DX: M47.817 Spondylosis without myelopathy or radiculopathy, lumbosacral region (principal); M46.1 Sacroiliitis, not elsewhere classified; G89.29 Other chronic pain; Z98.84 Bariatric surgery status; D50.9 Iron deficiency anemia, unspecified; Z86.59 Personal history of other mental and behavioral disorders; Z87.820 Personal history of traumatic brain injury; Z79.899 Other long term (current) drug therapy

== ENCOUNTER 2019-09-21 07:21 | Day surgery (SDC) | payer BC, OTHER ==
[~2019-09-21] VITALS: Ht 160 cm; Wt 105.7 kg
[~2019-09-21 07:21] MED LIST changes: +AMOX500T PO; +CYAN500T8 PO; +DOXE50CA PO; +HYDR-3363 PO; +METF-791 PO; -METF500T4 PO; +MIDO2.5T PO; -OMEP40CA2 PO; +OMEP40CA97 PO; -TRAZ-160 PO; +TRAZ-252 PO; -VITA500T3 PO; -diazePAM 5 MG TAB As Ordered ONE; -oxyCODONE 5MG TAB As Ordered ONE
[2019-09-21] MEDS ORDERED: LIDOCAINE W/EPINEPHRINE 1% 20ML VIAL As Ordered ONE (07:31)
[2019-09-21] MEDS ORDERED: EPINEPHrine 1MG/ML INJ 30ML MD-VIAL As Ordered ONE (07:31)
[2019-09-21] MEDS ORDERED: CIPRODEX OTIC SUSP 7.5ML As Ordered ONE (07:31)
[2019-09-21] MEDS ORDERED: LR 1,000 ML IV ONE (08:30)
[2019-09-21] MEDS ORDERED: PROPOFOL 200 MG/20 ML VIAL As Ordered ONE (09:11)
[2019-09-21] MEDS ORDERED: LIDOCAINE 2% INJ 100 MG/5 ML SDV (FOR ANES.) As Ordered ONE (09:11)
[2019-09-21] MEDS ORDERED: fentaNYL 100 MCG/2 ML INJECTION (J3010) As Ordered ONE (09:11)
[2019-09-21] MEDS ORDERED: ROCURONIUM BROMIDE 50 MG/5 ML VIAL As Ordered ONE (09:11)
[2019-09-21] MEDS ORDERED: HYDROmorphone HCL 2 MG/ML 1ML VIAL (J1170) As Ordered ONE (09:11)
[2019-09-21] MEDS ORDERED: MIDAZOLAM INJ 2 MG/2 ML VIAL (J2250) As Ordered ONE (09:11)
[2019-09-21] MEDS ORDERED: dexameTHASONE 4 MG/ML 1ML VIAL (J1100) As Ordered ONE (09:11)
[2019-09-21] MEDS ORDERED: ACETAMINOPHEN 1000MG 100ML IV BTL (OFIRMEV) (J0131 PER 10MG) As Ordered ONE (09:36)
[2019-09-21] MEDS ORDERED: ONDANSETRON 4MG/2ML VIAL (J2405) As Ordered ONE (09:52)
[2019-09-21] MEDS ORDERED: SUGAMMADEX SODIUM 500 MG/5 ML VIAL (BRIDION) As Ordered ONE (09:53)
[2019-09-21] MEDS ORDERED: fentaNYL 100 MCG/2 ML INJECTION (J3010) IV PRN (11:30)
[2019-09-21] MEDS ORDERED: METOCLOPRAMIDE INJ 10MG/2ML VIAL (J2765) IV PRN (11:30)
[2019-09-21] MEDS ORDERED: ONDANSETRON 4MG/2ML VIAL (J2405) IV PRN (11:30)
[2019-09-21] MEDS ORDERED: LR 1,000 ML IV SCH ×2 (11:30→12:31)
[2019-09-21] MEDS ORDERED: oxyCODONE 5MG TAB PO PRN (11:30)
[2019-09-21] MEDS ORDERED: MEPERIDINE INJ 25 MG/ML VIAL (J2175) IV PRN (11:30)
[2019-09-21] MEDS ORDERED: ACETAMINOPH W/CODEINE #3 TAB UD PO PRN (12:31)
--- NOTE | 2019-09-21 12:32 | RO ---
DATE OF PROCEDURE: 09/21/2019 PREPROCEDURE DIAGNOSIS: Chronic left tympanic membrane perforation. POSTPROCEDURE DIAGNOSIS: Chronic left tympanic membrane perforation. PROCEDURE: Left tympanoplasty. SURGEON: Dr. Milton Willis IMPORT/EXPORT SPECIALIST: ANESTHESIA: FINDINGS: There was a large perforation in the tympanic membrane. A lateral graft was performed. DESCRIPTION OF PROCEDURE: Under general anesthesia, the patient prepped and draped in usual manner. I cleaned the area with Betadine and saline. I infiltrated the ear with lidocaine and epinephrine. I made a canal incision posterior tympanotomy and then radial incisions. I then made a posterior incision, dissected down and harvested the temporalis fascia graft. Then, I elevated the periosteum down into the ear canal and then elevated the ear out of the way. I made an incision anteriorly at the annulus and then reflected the epithelium from medial to lateral. Once this was done, then I drilled off some of the bone anteriorly and inferiorly to expose the annulus. Then, I removed the lateral portion of the drum epithelium. Once this was cleaned, then I cut the temporalis fascia graft to the appropriate size and shape. I wrapped it around the hammer of the malleus after I inserted it into the ear and positioned it in place. I then placed Silastic on top of this and then some Gelfoam anteriorly to prevent lateralization. The canal was returned to original position, and I it open with Iodoform gauze. The posterior canal incision was closed with 3-0 chromic and 3-0 Prolene suture. A dressing was applied. The patient extubated and transferred to the recovery room in excellent condition.
[2019-09-21 14:25] VITALS: BP 104/60
== END 2019-09-21 14:49 | disposition home or self-care (01) ==
LOC: M SDC 07:21
PROVIDERS: ATTEND Otolaryngology
DX: H72.92 Unspecified perforation of tympanic membrane, left ear (principal); F41.9 Anxiety disorder, unspecified; F32.9 Major depressive disorder, single episode, unspecified; F43.10 Post-traumatic stress disorder, unspecified; Z88.8 Allergy status to other drugs, medicaments and biological substances; Z79.899 Other long term (current) drug therapy
CPT/HCPCS: 69620; J0131; J1100; J1170; J2250; J2405; J3010

== ENCOUNTER → 2021-12-27 | Outpatient (REF) | payer MEDICARE, BC, OTHER ==
[~2021-12-27] MED LIST changes: +CITA40TA7 PO; +COVI30VI IM; +CYAN500T14 PO; -CYAN500T8 PO; +DOXE25CA PO; +HYDR-3490 PO; -METF-791 PO; +METF-838 PO; +MODA200T15 PO; +MULT-40 PO; +OMEP40CA4 PO; -OMEP40CA97 PO; +QUET1TAB17 PO; -QUET1TAB7 PO; +TRAZ-257 PO; +ZONI100C17 PO; -ZONI100C2 PO
[2021-12-27 16:52] LABS: PERCENT SATURATION 52.2 % (13.2-45.0)
== END ==
LOC: M LAB REF 16:04
PROVIDERS: ATTEND Nurse Practitioner Adult Health
DX: D50.9 Iron deficiency anemia, unspecified (principal)

== ENCOUNTER → 2022-01-08 | Outpatient (REF) | payer MEDICARE, BC, OTHER ==
[~2022-01-08] MED LIST changes: +D31000TA2 PO
== END ==
LOC: M LAB REF 11:57
PROVIDERS: ATTEND Nurse Practitioner Adult Health
DX: R20.9 Unspecified disturbances of skin sensation (principal)

== ENCOUNTER → 2023-04-04 | Outpatient (REF) | payer MEDICARE, BC, OTHER ==
[~2023-04-04] MED LIST changes: +AIMO70IN2; -D31000TA2 PO; +GABA-1171; +VITA100093 PO; -ZONI100C17 PO; +ZONI100C67 PO
== END ==
LOC: M LAB REF 12:26
PROVIDERS: ATTEND Nurse Practitioner Adult Health
DX: D50.9 Iron deficiency anemia, unspecified (principal)

== ENCOUNTER → 2024-01-14 | Outpatient (REF) | payer MEDICARE, OTHER ==
[2024-01-14 13:13] LABS: FOLATE 10.4 NG/ML (>5.4); PERCENT SATURATION 27.6 % (13.2-45.0)
[2024-01-14 13:14] LABS: FERRITIN 27.7 NG/ML (7.3-270.7)
== END ==
LOC: M LAB REF 12:19
PROVIDERS: ATTEND Physician Assistant Medical
DX: D50.9 Iron deficiency anemia, unspecified (principal)

== ENCOUNTER 2024-03-18 10:13 | Outpatient (CLI) | payer MEDICARE, BC ==
[2024-03-18 10:30] VITALS: BP 127/84; O2SAT 96
[2024-03-18] MEDS: FERRIC CARBOXYMALTOSE INJ 750 MG in NS 250 ML (>50kg) IV ONE (11:03)
[2024-03-18] MEDS: diphenhydrAMINE 25MG CAP PO ONE (12:01)
[2024-03-18] MEDS: ACETAMINOPHEN TAB 650MG DOSE (2X325MG) PO ONE (12:01)
[2024-03-18 13:00] VITALS: BP 150/79; O2SAT 94
== END 2024-03-18 13:00 ==
LOC: M INFU 10:13
PROVIDERS: ATTEND Nurse Practitioner
DX: D50.9 Iron deficiency anemia, unspecified (principal); Z88.8 Allergy status to other drugs, medicaments and biological substances
CPT/HCPCS: 96365; 96366; J1439

== ENCOUNTER 2024-03-25 11:45 | Outpatient (CLI) | payer MEDICARE, BC ==
[2024-03-25 11:45] VITALS: BP_SYST 122; BP_SYST 129; BP_DIAS 57; BP_DIAS 81; O2SAT 100; O2SAT 97
[2024-03-25] MEDS ORDERED: FERRIC CARBOXYMALTOSE INJ 750 MG in NS 250 ML IV ONE (12:00)
[2024-03-25] MEDS: FERRIC CARBOXYMALTOSE INJ 750 MG in NS 250 ML IV ONE (12:27)
[2024-03-25 14:05] VITALS: BP 118/86; O2SAT 98
== END 2024-03-25 14:05 | disposition home or self-care (01) ==
LOC: M INFU 11:45
PROVIDERS: ATTEND Nurse Practitioner
DX: D50.9 Iron deficiency anemia, unspecified (principal); Z88.8 Allergy status to other drugs, medicaments and biological substances
CPT/HCPCS: 96365; J1439

== ENCOUNTER → 2024-05-21 | Outpatient (CLI) | payer MEDICARE, BC | LOC: M WUC 10:30 | PROVIDERS: ATTEND Internal Medicine | DX: R07.82 Intercostal pain (principal) ==

== ENCOUNTER → 2024-10-12 | Outpatient (CLI) | payer MEDICARE, BC ==
[~2024-10-12] MED LIST changes: +ATOG60TA; -MIDO2.5T PO; +MIDO2.5T3 PO
== END ==
LOC: M PAIN 13:00
PROVIDERS: ATTEND Nurse Practitioner Family
DX: M79.18 Myalgia, other site (principal); G89.29 Other chronic pain; M54.50 Low back pain, unspecified; D50.9 Iron deficiency anemia, unspecified; F32.A Depression, unspecified; F43.10 Post-traumatic stress disorder, unspecified; Z87.820 Personal history of traumatic brain injury; G43.909 Migraine, unspecified, not intractable, without status migrainosus; Z79.899 Other long term (current) drug therapy

== ENCOUNTER → 2024-10-29 | Outpatient (CLI) | payer MEDICARE, BC ==
[~2024-10-29] MED LIST changes: +TRIAMCINOLONE ACETONIDE SUSP 40MG/ML 1ML VIAL As Ordered ONE
== END ==
LOC: M PAIN 08:15
PROVIDERS: ATTEND Anesthesiology
DX: M79.18 Myalgia, other site (principal); G89.29 Other chronic pain; M54.50 Low back pain, unspecified; D50.9 Iron deficiency anemia, unspecified; G43.909 Migraine, unspecified, not intractable, without status migrainosus; Z79.899 Other long term (current) drug therapy
CPT/HCPCS: 20552; J0665; J3301

== ENCOUNTER → 2024-11-02 | Outpatient (CLI) | payer MEDICARE, BC ==
[~2024-11-02] MED LIST changes: -TRIAMCINOLONE ACETONIDE SUSP 40MG/ML 1ML VIAL As Ordered ONE
== END ==
LOC: M RAD 09:54
PROVIDERS: ATTEND Internal Medicine Hematology & Oncology
DX: D50.9 Iron deficiency anemia, unspecified (principal); R74.01 Elevation of levels of liver transaminase levels